=== PATIENT | female | born 1950 | race Caucasian/White ===

== ENCOUNTER 2018-09-26 18:19 | Observation (INO) ==
[2018-09-26] MEDS ORDERED: ASPIRIN 325 MG TABLET PO STA (19:06)
[2018-09-26 19:44] LABS: Basophils % 0.4 % (0.0-0.8); Eosinophils # 0.1 10*3/uL (0.0-0.87); Eosinophils % 1.2 % (0.00-10.9); Hematocrit 42.4 VOL% (35.7-47.0); Hemoglobin 14.8 GM/DL (12.0-16.0); Immature Granulocytes % 0.3 %; Immature Granulocytes Absolute 0.03 #; Lymphocytes # 2.7 10*3/uL (1.4-4.0); Lymphocytes % 25.7 % (21.3-54.2); Mean Corpuscular HGB Conc 34.9 GM/DL (32-36); Mean Corpuscular Hemoglobin 31 PG (27-34); Mean Corpuscular Volume 89.3 FL (87-102); Mean Platelet Volume 10.8 FL (9.6-12.0); Monocytes # 0.7 10*3/uL (0.11-0.8); Monocytes % 6.6 % (1.7-12.7); Neutrophils % 65.8 % (38.7-73.9); Platelet Count 286 T/CUMM (130-400); Red Blood Count 4.75 MC/CUMM (3.8-5.5); Red Cell Distribution Width 11.6 % (9.3-17.3); White Blood Count 10.6 T/CUMM (4-12)
[2018-09-26 19:52] LABS: INR 0.9
[2018-09-26 19:58] LABS: Calcium 9.2 MG/DL (8.5-10.1); Osmolality,Calculated 282.4 MOS/KG (273-304); Potassium 3.2 MMOL/L (3.5-5.1)
[2018-09-26] MEDS ORDERED: POTASSIUM CHLORIDE 20 MEQ TABLET PO PRN (23:01)
[2018-09-26] MEDS ORDERED: ONDANSETRON 4 MG/2 ML VIAL IV PRN (23:01)
[2018-09-26] MEDS ORDERED: SIMVASTATIN 40 MG TABLET PO SCH (23:01)
[2018-09-26] MEDS ORDERED: ACETAMINOPHEN 325 MG TABLET PO PRN (23:01)
[2018-09-26] MEDS ORDERED: NITROGLYCERIN SL 0.4 MG TABLET SL PRN (23:01)
[2018-09-26] MEDS ORDERED: ENOXAPARIN 40 MG/0.4 ML SYRINGE SUBCUT SCH (23:01)
[2018-09-26] MEDS ORDERED: GLUCAGON 1 MG VIAL IM PRN (23:01)
[2018-09-26] MEDS ORDERED: MORPHINE 4 MG/1 ML VIAL IV PRN (23:01)
[2018-09-26] MEDS ORDERED: DEXTROSE 50% 25 GM/50 ML SYRINGE IV PRN (23:01)
[2018-09-26] MEDS ORDERED: MONTELUKAST 10 MG TABLET PO PRN (23:01)
[2018-09-27 02:08] LABS: Basophils % 0.4 % (0.0-0.8); Eosinophils # 0.1 10*3/uL (0.0-0.87); Eosinophils % 1.4 % (0.00-10.9); Hematocrit 40.7 VOL% (35.7-47.0); Hemoglobin 13.9 GM/DL (12.0-16.0); Immature Granulocytes % 0.3 %; Immature Granulocytes Absolute 0.03 #; Lymphocytes # 4.2 10*3/uL (1.4-4.0); Lymphocytes % 42.3 % (21.3-54.2); Mean Corpuscular HGB Conc 34.2 GM/DL (32-36); Mean Corpuscular Hemoglobin 31 PG (27-34); Mean Corpuscular Volume 90.6 FL (87-102); Mean Platelet Volume 10.5 FL (9.6-12.0); Monocytes # 0.7 10*3/uL (0.11-0.8); Monocytes % 6.7 % (1.7-12.7); Neutrophils # 4.9 10*3/uL (1.4-7.4); Neutrophils % 48.9 % (38.7-73.9); Platelet Count 250 T/CUMM (130-400); Red Blood Count 4.49 MC/CUMM (3.8-5.5); Red Cell Distribution Width 11.6 % (9.3-17.3)
[2018-09-27 02:23] LABS: Calcium 8.7 MG/DL (8.5-10.1); Osmolality,Calculated 284.5 MOS/KG (273-304); Risk Ratio 3.97; VLDL CHOLESTEROL 39.6 MG/DL
[2018-09-27] MEDS ORDERED: INSULIN LISPRO 100 UNIT/ML SUBCUT SCH (07:30)
[2018-09-27] MEDS ORDERED: POTASSIUM CHLORIDE 20 MEQ TABLET PO SCH (09:00)
[2018-09-27] MEDS ORDERED: MAGNESIUM OXIDE 400 MG TABLET PO SCH (09:00)
[2018-09-27] MEDS ORDERED: ASPIRIN EC 81 MG TABLET PO SCH (09:00)
[2018-09-27] MEDS ORDERED: CHLORTHALIDONE 25 MG TABLET PO SCH (09:00)
[2018-09-27] MEDS ORDERED: PANTOPRAZOLE 40 MG TABLET PO SCH (09:00)
[2018-09-27] MEDS ORDERED: amLODIPine 5 MG TABLET PO SCH (09:00)
[2018-09-27] MEDS ORDERED: METOPROLOL SUCCINATE XL 25 MG TABLET PO SCH (09:00)
[2018-09-27] MEDS ORDERED: METOPROLOL SUCCINATE XL 50 MG TABLET PO SCH (09:00)
[2018-09-27] MEDS ORDERED: LOSARTAN 50 MG TABLET PO SCH (09:00)
[2018-09-27 09:36] VITALS: BP 174/68
[2018-09-27] MEDS ORDERED: ATORVASTATIN 20 MG TABLET PO SCH (21:00)
== END 2018-09-27 11:20 | disposition home or self-care (01) ==
LOC: N.ED 18:19 → N.EDINP 18:19 → N.2E 22:26
PROVIDERS: ADMIT Internal Medicine; ATTEND Internal Medicine